=== PATIENT | female | born 1995 | race Caucasian/White ===

== ENCOUNTER 2020-10-09 09:53 | Emergency (ER) | payer MEDICAID ==
[~2020-10-09] VITALS: Ht 157.5 cm; Wt 61.2 kg
[2020-10-09 09:53] VITALS: BP 132/85
[~2020-10-09 09:53] MED LIST: PREN-96 PO
[2020-10-09 10:36] LABS: Basophils # (auto) 0 10 ^3/uL (0-0.2); Basophils % (auto) 0.4 % (0.0-2.0); Eosinophils # (auto) 0.3 10 ^3/uL (0-0.8); Eosinophils % (auto) 4.8 % (0.0-7.0); Hematocrit 39.8 % (36.0-46.0); Hemoglobin 13.7 g/dL (12.2-16.2); Lymphocytes % (auto) 27.6 % (10.0-50.0); Mean Corpuscular Hemoglobin 29.7 pg (28.0-32.0); Mean Corpuscular Hgb Conc. 34.6 g/dL (32.0-36.0); Monocytes # (auto) 0.5 10 ^3/uL (0-1.3); Monocytes % (auto) 6.4 % (0.0-12.0); Neutrophils # (auto) 4.4 10 ^3/uL (1.6-8.6); Neutrophils % (auto) 60.8 % (37.0-80.0); Nucleated Red Blood Cells % 0.1 %; Platelet Count (auto) 211 10^3/uL (140-450); Red Blood Cells 4.62 10^6/uL (4.0-5.20); White Blood Cell 7.3 10^3/uL (4.4-10.8)
[2020-10-09 10:55] LABS: INR 0.97 (0.9-1.15); Partial Thromboplastin Time 29.1 sec (23.0-31.2)
== END 2020-10-09 11:35 | disposition left against medical advice (07) ==
LOC: ER 09:53
DX: O46.91 Antepartum hemorrhage, unspecified, first trimester (principal); O99.331 Smoking (tobacco) complicating pregnancy, first trimester; Z3A.08 8 weeks gestation of pregnancy; Z79.899 Other long term (current) drug therapy
CPT/HCPCS: 36415; 84702; 85025; 85610; 85730

== ENCOUNTER 2023-09-03 22:30 | Emergency (ER) | payer SELFPAY ==
[~2023-09-03] VITALS: Ht 160 cm; Wt 68.2 kg
[2023-09-03 22:57] VITALS: BP 144/77; PULSE 108; RESP 15; O2SAT 99
[2023-09-03] MEDS ORDERED: cefTRIAXone SOD 1,000 MG VL IM ONE (23:00)
[2023-09-03] MEDS ORDERED: cefTRIAXone W LIDOCAINE 1 GM IM IM ONE (23:00)
[2023-09-03] MEDS ORDERED: CEPH500C PO (23:04)
== END 2023-09-03 23:37 | disposition home or self-care (01) ==
LOC: ER 22:30
DX: L03.116 Cellulitis of left lower limb (principal); F17.210 Nicotine dependence, cigarettes, uncomplicated; Z98.890 Other specified postprocedural states; Z79.899 Other long term (current) drug therapy
CPT/HCPCS: 96372; 99283; J0696